=== PATIENT | female | born 1980 | race Caucasian/White ===

== ENCOUNTER 2017-02-09 20:00 | Emergency (ER) | payer MEDICAID ==
[~2017-02-09] VITALS: Ht 162.6 cm; Wt 80.5 kg
[2017-02-09 20:44] VITALS: Ht 162.6 cm; Wt 80.5 kg
[2017-02-09] MEDS ORDERED: SOD CHLORIDE 0.9% 1,000 ML IV STA (23:56)
[2017-02-09] MEDS ORDERED: ONDANSETRON 4 MG INJ IV STA (23:56)
[2017-02-09] MEDS ORDERED: morphine 4 MG/ML VIAL IV STA (23:56)
--- NOTE | 2017-02-10 00:39 | ERD ---
ER Documentation Chief Complaint Chief Complaint back pain x1wk. dx w/bulging disk, pinching nerve HPI 36-year-old female presents here to emergency department for complaints of right lower back pain for 2 months now worse in the last week. Patient had a lower back injury 2 months ago, was carrying heavy objects, started to have the pain afterwards, was given medication for pain before which got better, started to have pain again the last 1 week. Patient was seen by a chiropractor a few days ago, had some treatment was given injection for pain, continues to have the pain. Patient describes the pain as throbbing pain, 8/10 scale, not better or worse with anything. Noticed today to be having vaginal spotting. Patient denies being . Patient denies any fever or chills. Patient denies any nausea or vomiting. Patient took gabapentin and methocarbamol at home with much relief. ROS All systems reviewed and are negative except as per history of present illness. Medications Home Meds Active Scripts Ondansetron (Ondansetron Odt) 4 Mg Tab.rapdis, 4 MG PO Q8 Y for NAUSEA AND/OR VOMITING, #30 TAB Prov:CAPO DUMONT NP 02/10/17 Dicyclomine Hcl* (Bentyl*) 10 Mg Capsule, 10 MG PO QID, #20 CAP Prov:CAPO DUMONT NP 02/10/17 Cyclobenzaprine Hcl* (Cyclobenzaprine Hcl*) 10 Mg Tablet, 10 MG PO TID, #15 TAB Prov:CAPO DUMONT NP 02/10/17 Hydrocodone/Acetaminophen ([place] 10-325 Tablet) 1 Each Tablet, 1 TAB PO Q6H Y for SEVERE PAIN LEVEL 7-10, #20 TAB Prov:CAPO DUMONT NP 02/10/17 Ibuprofen* (Motrin*) 600 Mg Tab, 600 MG PO Q6H Y for PAIN AND OR ELEVATED TEMP, #30 TAB Prov:CAPO DUMONT NP 02/10/17 Reported Medications [none] Unknown Strength No Conflict Check 02/10/17 Allergies Allergies: Coded Allergies: Penicillins (Verified Allergy, Severe, rash, 02/09/17) PMhx/Soc Medical and Surgical Hx: pt denies Medical Hx History of Surgery: Yes () Anesthesia Reaction: No Hx Neurological Disorder: No Hx Respiratory Disorders: No Hx Cardiac Disorders: No Hx Psychiatric Problems: No Hx Miscellaneous Medical Probl: No Hx Alcohol Use: No Hx Substance Use: No Hx Tobacco Use: No Smoking Status: Never smoker FmHx Family History: No coronary disease, No diabetes, No other Physical Exam Vitals Vital Signs Date Time Temp Pulse Resp B/P Pulse Ox O2 Delivery O2 Flow Rate FiO2 02/10/17 01:22 82 100 Room Air 02/09/17 20:44 99.6 107 20 128/77 100 Physical Exam GENERAL: The patient is well developed and appropriate for usual state of health, in no apparent distress. CHEST: Clear to auscultation bilaterally. There are no rales, wheezes or rhonchi. HEART: Regular rate and rhythm. No murmurs, clicks, rubs or gallops. No S3 or S4. ABDOMEN: Soft, nontender and nondistended. Good bowel sounds. No rebound or guarding. No gross peritonitis. No gross organomegaly or masses. No Archer sign or McBurney point tenderness. BACK: No midline or flank tenderness. Tenderness on palpation on the right lower back, paraspinal aspect muscle spasms noted. EXTREMITIES: Equal pulses bilaterally. There is no peripheral clubbing, cyanosis or edema. No focal swelling or erythema. Full range of motion. Grossly neurovascularly intact. NEURO: Alert and oriented. Cranial nerves 2-12 intact. Motor strength in all 4 extremities with 5/5 strength. Sensation grossly intact. Normal speech and gait. SKIN: There is no apparent rash or petechia. The skin is warm and dry. HEMATOLOGIC AND LYMPHATIC: There is no evidence of excessive bruising or lymphedema. No gross cervical, axillary, or inguinal lymphadenopathy. Result Diagram: 02/10/17 0015 02/10/17 0015 Results 24 hrs Laboratory Tests Test 02/10/17 00:15 White Blood Count 11.410^3/ul Red Blood Count 4.4510^6/ul Hemoglobin 13.1g/dl Hematocrit 39.8% Mean Corpuscular Volume 89.4fl Mean Corpuscular Hemoglobin 29.4pg Mean Corpuscular Hemoglobin Concent 32.9g/dl Red Cell Distribution Width 12.2% Platelet Count 50098^3/UL Mean Platelet Volume 12.2fl Neutrophils % 59.2% Lymphocytes % 32.2% Monocytes % 6.4% Eosinophils % 1.7% Basophils % 0.2% Nucleated Red Blood Cells % 0.0/100WBC Neutrophils # 6.810^3/ul Lymphocytes # 3.710^3/ul Monocytes # 0.710^3/ul Eosinophils # 0.210^3/ul Basophils # 0.010^3/ul Nucleated Red Blood Cells # 0.010^3/ul Urine Color YELLOW Urine Clarity CLEAR Urine pH 6.0 Urine Specific [place] 1.010 Urine Ketones NEGATIVEmg/dL Urine Nitrite NEGATIVEmg/dL Urine Bilirubin NEGATIVEmg/dL Urine Urobilinogen NEGATIVEmg/dL Urine Leukocyte Esterase NEGATIVELeu/ul Urine Microscopic RBC 0/HPF Urine Microscopic WBC 1/HPF Urine Hemoglobin 1+mg/dL Urine Glucose NEGATIVEmg/dL Urine Total Protein NEGATIVEmg/dl Sodium Level 139mmol/L Potassium Level 3.7mmol/L Chloride Level 102mmol/L Carbon Dioxide Level 27mmol/L Anion Gap 14 Blood Urea Nitrogen 13mg/dl Creatinine 0.75mg/dl Glucose Level 99mg/dl Calcium Level 9.7mg/dl Total Bilirubin 0.5mg/dl Direct Bilirubin 0.00mg/dl Indirect Bilirubin 0.5mg/dl Aspartate Amino Transf (AST/SGOT) 40IU/L Alanine Aminotransferase (ALT/SGPT) 60IU/L Alkaline Phosphatase 71IU/L Total Protein 8.2g/dl Albumin 4.3g/dl Globulin 3.90g/dl Albumin/Globulin Ratio 1.10 Lipase 117U/L Current Medications Medications (Trade) Dose Ordered Sig/[place] Route PRN Reason Start Time Stop Time Status Last Admin Dose Admin Sodium Chloride (NS) 1,000 ml @ 1,000 mls/hr Q1H STAT IV 02/09/17 23:56 02/10/17 00:55 DC 02/10/17 00:22 Morphine Sulfate (morphine) 4 mg ONCE STAT IV 02/09/17 23:56 02/09/17 23:59 DC 02/10/17 00:22 Ondansetron HCl (Zofran Inj) 4 mg ONCE STAT IV 02/09/17 23:56 02/09/17 23:59 DC 02/10/17 00:22 Patient was given medication for pain here in emergency department, after treatment, patient verbalized feeling much better. Patient's pain is improved. Patient was given Zofran here in the emergency department. After treatment, patient was able to tolerate po fluids here in the emergency department without any vomiting. There is no signs and symptoms of dehydration. Normal saline IV bolus was given here in emergency department for rehydration, patient tolerated IV fluids. PROCEDURE: US Pelvis. CLINICAL INDICATION: Abnormal vaginal bleeding. TECHNIQUE: The pelvis was evaluated with transabdominal sonography in the axial and sagittal planes. COMPARISON: No prior study is available for comparison. FINDINGS: Uterus: 10.3 x 4.3 x 7.4 cm. Endometrium: There is an IUD in the endometrial canal. Endometrial thickness is 9.6 mm. Right ovary: 4.7 x 2.6 x 2.7 cm. Left ovary: 3.6 x 2.1 x 2.5 cm. Uterine masses: None. Ovarian masses: None. Color Doppler and pulsed Doppler sonography demonstrate normal flow to the ovaries. Other pelvic masses: None. Free fluid: None. IMPRESSION: 1. IUD in satisfactory position within the endometrial canal. 2. Otherwise normal pelvic ultrasound. RPTAT: QQ .Fer Garcia MD, Date Time Electronically viewed and signed by .Fer Garcia MD, on 02/10/2017 00:53 .R/ CC: CAPO DUMONT NP PROCEDURE: CT Abdomen and Pelvis without contrast. CLINICAL INDICATION: Pain. TECHNIQUE: CT scan of the abdomen and pelvis was performed on a multidetector slice CT scanner. No intravenous contrast material was utilized. Sagittal and coronal reformatted images were obtained from the axial source images. Images were reviewed on a high-resolution PACS workstation. Exam CTDlvol = 16 mGy and DLP = 976 Gy-cm. One of the following 3 dose reduction techniques were used: Automated exposure control; adjustment of the mA and/or kV according to patient size; or use of iterative reconstruction technique. COMPARISON: None. FINDINGS: There is no obstruction or ileus. There are multiple air-fluid levels in nondilated small bowel. The appendix is well visualized and normal in size. There are few left colon diverticuli without evidence for diverticulitis. There is no free fluid. The liver is overall normal in size. No intrahepatic lesions are identified. The gallbladder is normal in appearance. There is no definite biliary ductal dilation. Pancreas is normal in appearance. The spleen is unremarkable. There are no adrenal masses. The aorta is normal caliber. Kidneys are normal in appearance without hydronephrosis, mass or calculus. There is no perinephric collection. Ureters are of normal caliber and without evidence for an obstructing calculus The urinary bladder is normal in appearance. An IUD is present within the uterus. The uterus and ovaries are otherwise grossly unremarkable. Limited evaluation of the lung bases is unremarkable. The bones are unremarkable. IMPRESSION: 1. Air-fluid levels in nondilated small bowel consistent with a nonspecific enteritis. 2. No evidence for appendicitis. 3. Scattered left colon diverticuli without evidence for diverticulitis. 4. No obstructive uropathy. 5. IUD within the uterus. RPTAT: HMVK .Kings Jimenez MD, MD Date Time Electronically viewed and signed by .Kings Jimenez MD, MD on 02/10/2017 00:47 .K/ CC: CAPO DUMONT NP PROCEDURE: CT lumbar spine without contrast CLINICAL INDICATION: Back pain. TECHNIQUE: CT scan of the lumbar spine was performed on a multidetector scanner. Neither intravenous or intrathecal contrast was administered. Coronal and sagittal reformatted images were obtained from the axial source images. Images were reviewed on a high-resolution PACS workstation. Exam CTDlvol = 23 mGy and DLP = 822 mGy-cm. One of the following 3 dose reduction techniques were used: Automated exposure control; adjustment of the mA and/or kV according to patient size; or use of iterative reconstruction technique. COMPARISON: None available . FINDINGS: There is maintenance of height of the vertebral bodies. Alignment is maintained. There is no spondylolisthesis. No fracture is identified. Paraspinal soft tissues are unremarkable. There is limited evaluation of the spinal canal and neural foramina due to lack of intrathecal contrast material. T 12-L1: No abnormality. L 1-2: No abnormality. L 2-3: No abnormality. L 3-4: No abnormality L 4-5: There is mild posterior disc bulge. There is mild bilateral facet and ligament flavum hypertrophy. There is mild central canal and bilateral neural foraminal stenosis. L5-S1: There is moderate central posterior disc bulge. There is mild bilateral facet ligamentum flavum hypertrophy. There is moderate central canal stenosis. There is mild bilateral neural foraminal stenosis, right greater than left. IMPRESSION: 1. Mild degenerative changes lower lumbar spine greatest at L5-S1 with moderate central posterior disc bulge causing moderate central canal and mild right greater left neural foraminal stenosis. Correlation with MRI is recommended. 2. No acute fracture or subluxation. RPTAT: HMVK .Kings Jimenze MD, Date Time Electronically viewed and signed by .Kings Jimenez MD, on 02/10/2017 00:57 .K/ CC: CAPO DUMONT [employer] Procedures/MDM Medical Decision Making: Symptoms of abdominal pain most likely is consistent with enteritis, most likely viral. Patient's right lower back pain most likely is consistent with disc bulge noted in the lumbar spine, degenerative disc disease. No symptoms of incontinence, no symptoms of any cauda equina syndrome. No symptoms of any perirectal abscess, buttock abscess. There is low suspicion for abdominal emergencies at this time. Patients abdominal exam is normal at this time. Patients radiology exam does not show any abdominal emergencies at this time. There is low suspicion for appendicitis, cholecystitis , abdominal aortic aneurysms or peritonitis at this time. There is low suspicion for sepsis. Patient appears well and is hemodynamically stable. Disposition: Home. Condition: Stable Prescription [place], Zofran, ibuprofen, Flexeril and Bentyl Instructions: Patient is advised to take medications as prescribed. Patient is advised to rest, increase fluid intake and do brat diet for next 1-2 days and progress as tolerated. Patient is advised that if symptoms are worse, severe abdominal pain, uncontrolled vomiting, high fever, severe flank pain, worst signs and symptoms, to return to the emergency department immediately. Otherwise, patient can follow up with primary care doctor in 5-7 days. Disclaimer: Inadvertent spelling and grammatical errors are likely due to EHR/ dictation software use and do not reflect on the overall quality of patient care. Also, please note that the electronic time recorded on this note does not necessarily reflect the actual time of the patient encounter. Departure Diagnosis: Primary Impression: Back pain Back pain location: low back pain Chronicity: acute Back pain laterality: right Sciatica presence: without sciatica Qualified Code: M54.5 - Acute right-sided low back pain without sciatica Additional Impressions: Degenerative disc disease Spinal region: lumbar Qualified Code: M51.36 - Degeneration of intervertebral disc of lumbar region Enteritis Vaginal bleeding Condition: Stable Patient Instructions: Back Pain (Acute Or Chronic), Degenerative Disk Disease, Gastroenteritis, Bacterial (/Toddler) Additional Instructions: Patient is advised to take medications as prescribed. Patient is advised to rest, increase fluid intake and do brat diet for next 1-2 days and progress as tolerated. Patient is advised that if symptoms are worse, severe abdominal pain , uncontrolled vomiting, high fever, severe flank pain, worst signs and symptoms , to return to the emergency department immediately. Otherwise, patient can follow up with primary care doctor in 5-7 days. CAPO DUMONT NP Feb 10, 2017 00:39
--- NOTE | 2017-02-10 00:47 | RADRPT ---
PROCEDURE: CT Abdomen and Pelvis without contrast. CLINICAL INDICATION: Pain. TECHNIQUE: CT scan of the abdomen and pelvis was performed on a multidetector slice CT scanner. No intravenous contrast material was utilized. Sagittal and coronal reformatted images were obtained fr om the axial source images. Images were reviewed on a high-resolution PACS workstation. Exam CTDlvol = 16 mGy and DLP = 976 Gy-cm. One of the following 3 dose reduction techniques were used: Automated exposure control; adjustment of the mA and/or kV according to patient size; or use of iterative rec onstruction technique. COMPARISON: None. FINDINGS: There is no obstruction or ileus. There are multiple air-fluid levels in nondilated small bowel. Th e appendix is well visualized and normal in size. There are few left colon diverticuli without evid ence for diverticulitis. There is no free fluid. The liver is overall normal in size. No intrahepatic lesions are identified. The gallbladder is norm al in appearance. There is no definite biliary ductal dilation. Pancreas is normal in appearance. Th e spleen is unremarkable. There are no adrenal masses. The aorta is normal caliber. Kidneys are normal in appearance without hydronephrosis, mass or calculus. There is no perinephric c ollection. Ureters are of normal caliber and without evidence for an obstructing calculus The urinar y bladder is normal in appearance. An IUD is present within the uterus. The uterus and ovaries are otherwise grossly unremarkable. Limited evaluation of the lung bases is unremarkable. The bones are unremarkable. IMPRESSION: 1. Air-fluid levels in nondilated small bowel consistent with a nonspecific enteritis. 2. No evidence for appendicitis. 3. Scattered left colon diverticuli without evidence for diverticulitis. 4. No obstructive uropathy. 5. IUD within the uterus. RPTAT: HMVK .Kings Jimenez MD, Date Time Electronically viewed and signed by .Kings Jimenez MD, on 02/10/2017 00:47 .K/
--- NOTE | 2017-02-10 00:54 | RADRPT ---
PROCEDURE: US Pelvis. CLINICAL INDICATION: Abnormal vaginal bleeding. TECHNIQUE: The pelvis was evaluated with transabdominal sonography in the axial and sagittal plane s. COMPARISON: No prior study is available for comparison. FINDINGS: Uterus: 10.3 x 4.3 x 7.4 cm. Endometrium: There is an IUD in the endometrial canal. Endometrial thickness is 9.6 mm. Right ovary: 4.7 x 2.6 x 2.7 cm. Left ovary: 3.6 x 2.1 x 2.5 cm. Uterine masses: None. Ovarian masses: None. Color Doppler and pulsed Doppler sonography demonstrate normal flow to the ova laury. Other pelvic masses: None. Free fluid: None. IMPRESSION: 1. IUD in satisfactory position within the endometrial canal. 2. Otherwise normal pelvic ultrasound. RPTAT: QQ .Fer Garcia MD, MD Date Time Electronically viewed and signed by .Fer Garcia MD, on 02/10/2017 00:53 .R/
--- NOTE | 2017-02-10 00:58 | RADRPT ---
PROCEDURE: CT lumbar spine without contrast CLINICAL INDICATION: Back pain. TECHNIQUE: CT scan of the lumbar spine was performed on a multidetector scanner. Neither intrave nous or intrathecal contrast was administered. Coronal and sagittal reformatted images were obtaine d from the axial source images. Images were reviewed on a high-resolution PACS workstation. Exam CT Dlvol = 23 mGy and DLP = 822 mGy-cm. One of the following 3 dose reduction techniques were used: Aut omated exposure control; adjustment of the mA and/or kV according to patient size; or use of iterati ve reconstruction technique. COMPARISON: None available . FINDINGS: There is maintenance of height of the vertebral bodies. Alignment is maintained. There is no spondy lolisthesis. No fracture is identified. Paraspinal soft tissues are unremarkable. There is limited evaluation of the spinal canal and neural foramina due to lack of intrathecal contr ast material. T 12-L1: No abnormality. L 1-2: No abnormality. L 2-3: No abnormality. L 3-4: No abnormality L 4-5: There is mild posterior disc bulge. There is mild bilateral facet and ligament flavum hypert rophy. There is mild central canal and bilateral neural foraminal stenosis. L5-S1: There is moderate central posterior disc bulge. There is mild bilateral facet ligamentum fla vum hypertrophy. There is moderate central canal stenosis. There is mild bilateral neural foraminal stenosis, right greater than left. IMPRESSION: 1. Mild degenerative changes lower lumbar spine greatest at L5-S1 with moderate central posterior d isc bulge causing moderate central canal and mild right greater left neural foraminal stenosis. Sergey elation with MRI is recommended. 2. No acute fracture or subluxation. RPTAT: HMVK .Kings Jimenez MD, MD Date Time Electronically viewed and signed by .Kings Jimenez MD, MD on 02/10/2017 00:57 .K/
[2017-02-10] MEDS ORDERED: ONDA4TAB14 PO (01:08)
[2017-02-10] MEDS ORDERED: CYCL-319 PO (01:08)
[2017-02-10] MEDS ORDERED: IBUP-1542 PO (01:08)
[2017-02-10] MEDS ORDERED: DICY10CA60 PO (01:08)
[2017-02-10] MEDS ORDERED: HYDR-902 PO (01:08)
[2017-02-10 01:22] VITALS: PULSE 82
== END 2017-02-10 01:23 | disposition home or self-care (01) ==
LOC: FTE 20:00
DX: M54.5 Low back pain (principal); M51.36 Other intervertebral disc degeneration, lumbar region; K52.9 Noninfective gastroenteritis and colitis, unspecified; N93.9 Abnormal uterine and vaginal bleeding, unspecified
CPT/HCPCS: 36415; 72131; 74176; 76856; 80053; 81001; 83690; 85025; 96374; 96375; J2270; J2405; J7030; Z7502